=== PATIENT | male | born 1990 | race Caucasian/White ===

== ENCOUNTER 2024-12-10 21:34 | Emergency (ER) | payer OTHER, SELFPAY ==
[2024-12-10 21:35] VITALS: BP 166/96
[2024-12-10 21:57] LABS: Hematocrit 42.0 % (39.0-52.0); Hemoglobin 14.5 g/dL (13.0-18.0); Mean Corp Hgb Conc. 34.5 g/dL (33.0-37.0); Mean Corpuscular Volume 89.4 fL (80.0-94.0); Nucleated Red Blood Cells % 0 % (-); Platelet Count 214 10^3/uL (130-400); Red Cell Dist. Width 11.7 % (11.5-14.5)
[2024-12-10 22:25] LABS: ALT (SGPT) 24 U/L (0-50); AST (SGOT) 21 U/L (17-59); Albumin 4.9 g/dl (3.5-5.0); Alkaline Phosphatase 41 U/L (38-126); Blood Urea Nitrogen 16 mg/dl (9-20); Calcium 9.5 mg/dl (8.4-10.2); Carbon Dioxide 27 mmol/L (22-30); Chloride 102 mmol/L (98-107); Glucose 97 mg/dl (70-99); Lipase 141 U/L (23-300); Potassium 4.2 mmol/L (3.5-5.1); Total Protein 7.9 g/dl (6.3-8.2); eGFR > 60.00
[2024-12-10 22:33] LABS: Sodium 136 mmol/L (135-145)
[2024-12-11 00:10] VITALS: BP 142/76
--- NOTE | 2024-12-11 00:15 | EDRN ---
Pt with 5 days of increasing abdominal pain. 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 This has not helped, pain getting worse and waking him up at night. Tylenol not helping pain. Pt says he cannot
function with this pain. Pt adds [place] head [place] the [place] on Tuesday morning so he wants to make sure his abdominal pain is not something serious. Pain is sharp and pt feels constipated however he is still having bowel
movements. Pt stopped eating 1 day ago and says pain lessened for a bit but is back full force now. Pain constant. Slight nausea, no vomiting. No fever. Chills, no cough. No urinary symptoms, cp/sob.
--- NOTE | 2024-12-11 00:30 | ED.GENMED ---
History of Present Illness
General
Chief Complaint: Abdominal Symptoms
Source: patient
Exam Limitations: none
Time Seen by Provider: 12/11/24 00:25
Nursing documentation reviewed up to this point in time: agreed with
History of Present Illness
History of Present Illness:
Note:
CHIEF COMPLAINT(S)
Abdominal pain.
HISTORY OF PRESENT ILLNESS
The patient is a 34-year-old male with PMH of POTS, presenting with progressively worsening abdominal pain for the past five days. The pain is described as excruciating and constant, affecting the entire abdominal region. It has been severe enough
to disrupt sleep, waking the patient during the night. The patient initially attributed the pain to consuming something disagreeable, hillary to a stomach bug, but considers this possibility unlikely given the absence of associated diarrhea.
Constipation is now more of a concern, although bowel movements are still occurring, with a recent one being darker in color. The pain intensity and persistence caused the patient to cease eating altogether, which appears to have slightly alleviated
the discomfort. Medications such as proton pump inhibitors (PPI) and antacids provided initial but transient relief; currently, the patient perceives these treatments as ineffective. Additionally, the patient reports that the intense pain was not
accompanied by the same level of nausea experienced during a previous episode of norovirus. The patients spouse, a medical professional, suggested gastritis, and the patient has been consistently taking PPI for this suspected diagnosis. However,
with severe pain persisting despite this treatment, other causes such as diverticulitis or other acute abdominal abnormalities are considered. There are no present symptoms such as difficulty with urination, radiation of pain to the back, or fever.
Eating seems to trigger the pain although patient is able to tolerate oral intake.
PAST MEDICAL AND SURGICAL HISTORY
The patient has a history of norovirus infection and previously had an appendectomy.
CHRONIC MEDICAL CONDITIONS SIGNIFICANTLY AFFECTING CARE
History of POTS
MEDICATIONS
Patient reports daily use of proton pump inhibitors and antacids for suspected gastritis.
REVIEW OF SYSTEMS
- Gastrointestinal: Severe, constant abdominal pain, primarily throughout the abdomen, exacerbated by eating. Recent darker stools noted.
- General: Disturbed sleep due to pain.
- Urinary: No symptoms such as burning or blood noted.
- Respiratory: No chest pain or heartburn sensation.
PHYSICAL EXAM
General: Alert, no acute distress.
Skin: Warm, dry.
Head: Normocephalic, atraumatic.
Neck: Supple, trachea midline.
Eye Ears, Nose, Mouth, and Throat: Oral mucosa moist.
Cardiovascular: Normal peripheral perfusion, no edema.
Respiratory: Respirations are non-labored.
Gastrointestinal: Abdomen nondistended, non-tender to palpation
Back: Normal range of motion, normal alignment.
Musculoskeletal: Normal range of motion, normal strength.
Neurological: Alert and oriented to person, place, time, and situation, no focal neurological deficit observed.
Psychiatric: Cooperative, appropriate mood, and affect.
PLAN
1. Initiate intravenous (IV) access for medication administration.
2. Administer IV PPI, pain relief medication including Toradol, and carafate
3. Obtain a CT scan of the abdomen to rule out diverticulitis, obstruction, or other acute abdominal conditions.
4. Discuss potential follow-up care with a construction specialist if imaging is unrevealing.
DIFFERENTIAL DIAGNOSIS
The Differential Diagnosis includes, in no particular order and is not limited to:
1. Gastritis
2. Peptic ulcer disease
3. Diverticulitis
4. Small bowel obstruction
5. Appendicitis (unlikely due to previous surgery)
6. Constipation
7. Gallbladder disease
8. Pancreatitis
9. Hernia
10. Gastroenteritis
CHART REVIEW
No prior ER physician documentation to review; no external medical summary to review
MDM/DISPOSITION
The patient is a 34-year-old male with PMH of POTS, presenting with progressively worsening abdominal pain for the past five days. The pain is described as excruciating and constant, affecting the entire abdominal region. It has been severe enough
to disrupt sleep, waking the patient during the night. On physical exam, patient is well-appearing in no acute distress. His abdomen is nontender and on distended. He is afebrile. Labs reviewed, no leukocytosis noted. CMP unremarkable. Patient
is given Carafate, Bentyl, Toradol, with minimal relief. CT scan shows moderate stool burden but otherwise no acute intra-abdominal abnormalities. Suspect pain related to persisting constipation versus abdominal spasm with IBS component.
Discussed follow-up with GI. Discussed strict return precautions. Patient stable for discharge.
Review of Systems
Review of Systems
All Other Systems: ROS reviewed and negative except as documented in HPI and ROS
Phy Exam
Physical Exam
Physical Exam:
see hpi
Course
Orders/Labs/Results
Orders:
Orders
12/10/24 21:47
Complete Blood Count/With Diff Urgent
Comprehensive Metabolic Panel Urgent
Lipase Urgent
12/11/24 00:48
CT Abd/pelvis W Iv Cont Urgent
Comment:
Reason For Exam: diffuse abdominal pain
Sucralfate Suspension [Carafate Suspension] 1 gm PO NOW STA
12/11/24 00:49
0.9% Sodium Chloride 500 ml [Nss] 500 ml IV BOLUS
Ketorolac [Toradol] 15 mg IV NOW STA
12/11/24 01:12
Pantoprazole [Protonix IV] 40 mg IV NOW STA
12/11/24 03:30
Dicyclomine [Bentyl] 20 mg PO NOW STA
12/11/24 04:05
Docusate Sodium [Colace] 100 mg PO NOW STA
Abnormal Lab Results
12/10/24
21:47
Absolute Monos (auto) 0.7 H 10^3/uL
(0.1-0.6)
Monocytes % 9.8 H %
(1.7-9.3)
12/10/24 21:47
12/10/24 21:47
Vital Signs
Initial and Last Documented VS:
Initial Vital Signs
Temp Pulse Resp BP Pulse Ox
98.3 F 54 16 166/96 100
12/10/24 21:35 12/10/24 21:35 12/10/24 21:35 12/10/24 21:35 12/10/24 21:35
Last Documented Vital Signs
Temp Pulse Resp BP Pulse Ox
98.5 F 55 14 128/74 98
12/11/24 00:10 12/11/24 04:17 12/11/24 02:07 12/11/24 04:17 12/11/24 04:17
*Pulse Oximetry
SaO2: 99
Oxygen Mode of Delivery: Room air
Patient hypoxic: no
*Critical Care Note
Total Time (30-74mins, 75-104mins- exclusive of procedures): Not Applicable
Update Note
Update Note:
3:31 am- CT scan results unremarkable. Moderate stool burden. Patient did state that he feels like he has been constipated although he did have a small bowel movement this morning. He is not convinced it is the cause of his pain. Will trial bentyl
ED Attending Note
-
Portions of this chart may have been created with voice recognition software.� Occasional wrong word or��sound alike� substitutions may have occurred due to the inherent limitations of voice recognition software.
Discharge Plan
Departure
Patient Disposition: Home (Routine Discharge)
Date of Disposition: 12/11/24
Time of Disposition: 04:06
Patient with high blood pressure during this ER visit?: Yes
Condition: Good
Discharge Problem:
Abdominal pain
Instructions: Abdominal Pain, BLOOD PRESSURE
Prescriptions:
New
sucralfate [Carafate] 1 gram tablet
1 g PO TID Qty: 10 0RF
No Action
Trintellix 10 mg Tablet
10 mg PO DAILY
Referrals:
Rubén Berg MD [Active, Gastroenterology] - Call in 1-3 days for appt
Marlon Gorman MD [Family Provider, Family Practice]
Activity Restrictions/Additional Instructions:
As discussed, your blood work was unremarkable, your CT scan did not show any evidence of acute intraabdominal abnormality.
Please call the attached number to schedule appointment with GI. Please continue the PPI. You can also try colace or miralax as there was a moderate stool burden noted on CT scan. Carafate was also sent to your pharmacy.
PLEASE RETURN TO THE ER SHOULD YOU DEVELOP DARK BLACK TARRY STOOLS, VOMITING BLOOD, COFFEE GROUND EMESIS, FEVERS OR CHILLS, CHEST PAIN, SHORTNESS OF BREATH, OR ANY OTHER SIGNS OR SYMPTOMS CONCERNING TO YOU.
Interventions
Interventions:
*Risk Screen - Suicide Last Done: 12/10/24 21:35
*General Assessment Last Done: 12/10/24 21:35
*Neglect/Abuse Screening Last Done: 12/10/24 21:35
*ED- Fall Risk Assessment Last Done: 12/10/24 21:35
*ED COVID-19 Vaccine History Last Done: 12/10/24 21:35
*Nursing Disposition Last Done: 12/11/24 04:26
KR-Psbzla-Amvdnrzwkw Assessment Last Done: 12/11/24 00:27
Discharge Date and Time
Discharge Date/Time: 12/11/24 04:26
Print Language: GREENLANDIC
[2024-12-11] MEDS: NSS 500 IV (00:59)
[2024-12-11] MEDS: TORADOL 15 MG IV (01:00)
[2024-12-11] MEDS: CARAFATE SUSPENSION 1 GM PO (01:02)
[2024-12-11] MEDS: PROTONIX IV 40 MG IV (01:17)
[2024-12-11 02:07] VITALS: BP 126/61
[2024-12-11] MEDS: BENTYL 20 MG PO (03:41)
[2024-12-11 04:17] VITALS: BP 128/74
[2024-12-11] MEDS: COLACE 100 MG PO (04:21)
== END 2024-12-11 04:26 | disposition home or self-care (01) ==
LOC: EMR 21:34
PROVIDERS: Emergency Medicine; EMERGENCY PHYSICIAN Emergency Medicine; FAMILY PHYSICIAN Family Medicine
DX: R10.84 Generalized abdominal pain (principal); Z90.49 Acquired absence of other specified parts of digestive tract
CPT/HCPCS: 99284; 96374; 96375; 96361; 74177; 80053; 83690; 85025; Q9967